=== PATIENT | male | born 1995 | race Caucasian/White ===

== ENCOUNTER 2018-04-15 05:39 | Observation (INO) | payer OTHER ==
[~2018-04-15] VITALS: Ht 188 cm; Wt 94.6 kg
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
[2018-04-15] MEDS ORDERED: NS(*) 0.9% 1000 ML BAG 1,000 ML IV ONE (06:03)
[2018-04-15 06:13] LABS: PLATELET COUNT, AUTOMATED 198 K/uL (150-450)
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
[2018-04-15] MEDS ORDERED: IOPAMIDOL 76% 75 ML INFUS BTL 75 ML ONE (08:41)
[2018-04-15] MEDS ORDERED: DIPHTH/TETANUS/ACEL. PERTUSSIS IM ONLY ONE (09:00)
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
[2018-04-15 10:35] VITALS: BP 112/67
[2018-04-15] MEDS ORDERED: KETOROLAC 15 MG/ML VIAL IVP PRN (10:50)
[2018-04-15] MEDS ORDERED: ONDANSETRON 4 MG/2 ML VIAL IVP PRN ×2 (10:50→16:30)
[2018-04-15] MEDS ORDERED: fentaNYL CITR 100 MCG/2 ML AMP IVP PRN (10:50)
[2018-04-15 11:09] VITALS: BP 103/54
[2018-04-15 15:19] VITALS: BP 115/63
[2018-04-15 16:12] VITALS: Ht 188 cm; Wt 94.6 kg
[2018-04-15] MEDS ORDERED: FLUSH 10 ML SYR IVP PRN (16:30)
[2018-04-15] MEDS ORDERED: ACETAMINOPHEN 325 MG TAB PO PRN (16:30)
[2018-04-15] MEDS ORDERED: MORPHINE 2 MG/ML SYR IVP PRN (16:30)
[2018-04-15] MEDS ORDERED: PROMETHAZINE 25 MG/ML 1 ML AMP IVP PRN (16:30)
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
[2018-04-15 20:14] VITALS: BP 117/92
[2018-04-15] MEDS: FAMOTIDINE 20 MG TAB PO SCH (20:41)
[2018-04-15] MEDS: IBUPROFEN 600 MG TAB PO PRN (20:41)
[2018-04-15] MEDS: DOCUSATE SODIUM 100 MG CAP PO SCH (20:44)
[2018-04-15 23:28] VITALS: BP 123/60
[2018-04-16 02:28] VITALS: BP 118/63
[2018-04-16] MEDS: IBUPROFEN 600 MG TAB PO PRN ×2 (05:42→09:40)
[2018-04-16 06:08] LABS: PLATELET COUNT, AUTOMATED 153 K/uL (150-450)
--- NOTE | 2018-04-16 06:48 | RADIOLOGY IMAGING REPORT ---
FACILITY: [facility] PATIENT NAME: Bindu Pal : 1995 MR: [id number] V: [id number] EXAM DATE: ORDERING PHYSICIAN: LUIS COLBY TECHNOLOGIST: [place] [facility] [place]indu Pal : 1995 Visit/Account:[id number] Date of Sevice: 04/16/2018 AP CHEST 04/16/2018 5:00 AM. INDICATION: Pulmonary contusion. COMPARISON: Chest radiographs and CT yesterday. FINDINGS: Lungs are well-expanded. Hazy opacification in left mid and upper lung corresponding to CT findings. No pleural effusion or pneumothorax. Heart size is normal. IMPRESSION: Hazy left mid and upper lung opacification as seen on CT that again may represent contusi on or aspiration. Report Dictated By: Ja Elizalde MD at 04/16/2018 6:42 AM Report E-Signed By: Ja Elizalde MD at 04/16/2018 6:44 AM WSN:[id number]
[2018-04-16] MEDS ORDERED: FAMO-67 PO (08:10)
[2018-04-16] MEDS ORDERED: IBUP600T22 PO (08:10)
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
[2018-04-16] MEDS: DOCUSATE SODIUM 100 MG CAP PO SCH (09:40)
[2018-04-16] MEDS: FAMOTIDINE 20 MG TAB PO SCH (09:40)
[2018-04-16 09:44] VITALS: BP 121/73
== END 2018-04-16 08:08 | disposition home or self-care (01) ==
LOC: ER 05:44 → MED 09:42 → INTOOBSV 09:42
PROVIDERS: ADMIT Surgery; ATTEND Surgery
DX: S63.501A Unspecified sprain of right wrist, initial encounter (principal); S63.91XA Sprain of unspecified part of right wrist and hand, initial encounter; S60.511A Abrasion of right hand, initial encounter; S63.502A Unspecified sprain of left wrist, initial encounter; S27.321A Contusion of lung, unilateral, initial encounter; V48.5XXA Car driver injured in noncollision transport accident in traffic accident, initial encounter
CPT/HCPCS: 36415; 71045; 71046; 71260; 73110; 73130; 80320; 81001; 82150; 83605; 83690; 85025; 90715; 99001; G0378; Q9967; 82040; 82247; 82310; 82374; 82435; 82565; 82947; 84075; 84132; 84155; 84295; 84450; 84460; 84520

== ENCOUNTER → 2018-04-15 | Outpatient (CLI) | payer OTHER ==
[~2018-04-15] MED LIST: FAMO-67 PO; IBUP600T22 PO
[2018-04-15 16:12] VITALS: BMI 26.7
== END ==
LOC: AMB 04:35
PROVIDERS: ATTEND Nurse Practitioner
DX: M79.641 Pain in right hand (principal); V49.88XA Car occupant (driver) (passenger) injured in other specified transport accidents, initial encounter; Y92.411 Interstate highway as the place of occurrence of the external cause
CPT/HCPCS: A0425; A0427